=== PATIENT | male | born 1985 ===

== ENCOUNTER 2023-09-09 18:37 | Emergency (ER) | payer SELFPAY ==
[2023-09-09] MEDS: EPINEPHrine 1:10,000 1 MG/10 ML Syringe IVPUSH ONE ×2 (18:37→18:40)
== END 2023-09-09 21:00 | disposition expired ==
LOC: JD.ED 18:37
DX: T40.411A Poisoning by fentanyl or fentanyl analogs, accidental (unintentional), initial encounter (principal); I46.9 Cardiac arrest, cause unspecified; J96.00 Acute respiratory failure, unspecified whether with hypoxia or hypercapnia
CPT/HCPCS: 31500; 36680; 92950; 99285; J0171